=== PATIENT | female | born 1980 | race Caucasian/White ===

== ENCOUNTER 2018-03-01 07:40 | Inpatient (IN) | payer SELFPAY ==
[2018-03-01] MEDS ORDERED: Penicillin G Potassium IV* 5,000,000 UNITS in NS 0.9% 100 ML* 100 ML IVPB ONE (08:22)
[2018-03-01] MEDS ORDERED: Oxytocin in LR* 20 UNITS/1,000 ML BAG IVPB ONE (08:32)
--- NOTE | 2018-03-01 08:33 | HP ---
General Information - Reason for Visit Arrives for IND at term - General Information Maternal Age: 37 Grav: 4 Para: 2 SAB: 0 IEA: 1 Estimated Due Date: 02/26/18 Determined By: Early Ultrasound Maternal Blood Type and Rh: O Positive - Results this Serology/RPR Result: Non-Reactive Rubella Result: Immune HBsAg Result: Negative HIV Result: Negative GBS Culture Result: Positive Past Medical History Delivery History: Hx Complicated Vaginal Delivery Pertinent Past Medical History: Non-Contributory Pertinent Past Surgical History: See Records Pertinent Family History: Non-Contributory - Antepartal Records Antepartal Records: Reviewed, Uncomplicated Review of Systems Constitutional: Comfortable CV Complaint: No Respiratory: Shortness of Breath: No Gastrointestinal: No Nausea/Vomiting, Normal Bowel Movement Genitourinary: No Dysuria, No Bleeding, No Leaking Fluid Musculoskeletal: No Complaint Neurological: No Headache Movement: Normal Exam Allergies/Adverse Reactions: Allergies MS Metronidazole [Metronidazole] Allergy (Severe, Verified 01/24/14 11:00) Anaphylatic Shock MS Clindamycin [Clindamycin] Allergy (Verified 01/24/14 11:00) SEVERE Hives, ANAPHYLAXIS WNL - Measurements Height: 5 ft 4 in Weight: 155 lb Weight in lbs: 155.817046 Body Mass Index (BMI): 26.6 - Exam Breast: Breast Exam Deferred Heart: Normal Rhythm/Heart Sounds HEENT: No Significant Findings - Abdominal Exam Abdomen Exam: Non-Tender - Ultrasound/Biophysical Profile Ultrasound Status: Not Done Targeted Exam Findings Membrane Status: Intact EFM Findings - External Monitor Findings Baseline Heart Rate: 135 External Monitor Findings: Accelerations Present, No Pattern of Variable or Late Decelerations, Variability Moderate, Baseline Stable Contractions: None Assessment/Plan - Assessment P2 here for induction at 40.3wks. - Obstetrical Risk Factors Obstetrical Risk Factors: GBS Positive - Plan Plan: Induction, Antibiotic Prophylaxis
[2018-03-01] MEDS ORDERED: Oxytocin in LR* 20 UNITS/1,000 ML BAG IVPB SCH ×2 (09:00→18:00)
[2018-03-01 09:19] LABS: Hematocrit 32 % (35-47); Hemoglobin 10.7 g/dl (12.0-16.0); Mean Corpuscular HGB Conc 33 g/dl (31-36); Mean Corpuscular Hemoglobin 29 pg (27-31); Mean Corpuscular Volume 86 fL (80-97); Mean Platelet Volume 8.7 um3 (7.4-10.4); Platelet Count 213 10^3/ul (150-450); Red Blood Count 3.73 10^6/ul (4.00-5.40); Red Cell Distribution Width 14 % (10.5-15); White Blood Count 9.6 10^3/ul (3.5-10.8)
[2018-03-01] MEDS: Penicillin G Potassium IV* 2,500,000 UNITS in NS 0.9% 100 ML* 100 ML IVPB SCH ×2 (09:45→14:14)
[2018-03-01] MEDS ORDERED: OBEPIDURAL* 250 ML EPIDURAL ONE (14:21)
[2018-03-01] MEDS ORDERED: fentaNYL* 50 MCG/ML 2 ML VIAL (100 MCG VIAL) ONE (14:36)
[2018-03-01] MEDS ORDERED: Sodium Citrate/Citric Acid* 15 ML UDC PO PRN (14:58)
[2018-03-01] MEDS ORDERED: Famotidine TAB* 20 MG PO PRN (14:58)
[2018-03-01] MEDS ORDERED: Phenylephrine IV* 40 MCG/ML 10 ML SYRINGE IV PUSH PRN ×2 (14:58)
[2018-03-01] MEDS ORDERED: OBEPIDURAL* 250 ML EPIDURAL SCH (15:00)
[2018-03-01] MEDS ORDERED: Glycerin ADULT SUPP PR PRN (17:58)
[2018-03-01] MEDS ORDERED: Witch Hazel PAD* JAR TOPICAL PRN (17:58)
[2018-03-01] MEDS ORDERED: Dibucaine 1% 28.35 GM TUBE PR PRN (17:58)
[2018-03-01] MEDS ORDERED: Misoprostol TAB* 200 MCG PR ONE (17:58)
[2018-03-01] MEDS ORDERED: Acetaminophen TAB* 325 MG PO PRN (17:58)
[2018-03-01] MEDS ORDERED: Ammonia Inhalant* 1 EA AMP ONE (19:46)
[2018-03-01] MEDS ORDERED: Simethicone TAB* 80 MG TAB.CHEW PO SCH (21:00)
[2018-03-01 21:40] LABS: ABS Basophils 0 10^3/ul (0-0.2); ABS Eosinophils 0.1 10^3/ul (0-0.6); ABS Lymphocytes 1.6 10^3/ul (1.0-4.8); ABS Monocytes 0.5 10^3/ul (0-0.8); ABS Neutrophils 7.5 10^3/ul (1.5-7.7); ABS Nucleated RBC 0 10^3/ul; Eosinophil % 0.6 % (0-6); Lymphocyte % 16.3 % (25-47); Nucleated Red Blood Cells % 0.2
[2018-03-01] MEDS: Ibuprofen TAB* 600 MG PO PRN (22:23)
[2018-03-02] MEDS: Ibuprofen TAB* 600 MG PO PRN ×4 (03:47→22:13)
[2018-03-02 06:40] LABS: ABS Basophils 0 10^3/ul (0-0.2); ABS Eosinophils 0.1 10^3/ul (0-0.6); ABS Lymphocytes 1.9 10^3/ul (1.0-4.8); ABS Monocytes 0.8 10^3/ul (0-0.8); ABS Neutrophils 12.8 10^3/ul (1.5-7.7); ABS Nucleated RBC 0 10^3/ul; Eosinophil % 0.3 % (0-6); Hematocrit 25 % (35-47); Hemoglobin 8.4 g/dl (12.0-16.0); Lymphocyte % 12.1 % (25-47); Mean Corpuscular HGB Conc 34 g/dl (31-36); Mean Corpuscular Hemoglobin 29 pg (27-31); Mean Corpuscular Volume 86 fL (80-97); Mean Platelet Volume 8.2 um3 (7.4-10.4); Nucleated Red Blood Cells % 0; Platelet Count 166 10^3/ul (150-450); Red Blood Count 2.88 10^6/ul (4.00-5.40); Red Cell Distribution Width 14 % (10.5-15); White Blood Count 15.5 10^3/ul (3.5-10.8)
--- NOTE | 2018-03-02 07:47 | PROCNOTE ---
[facility] OB: Delivery Note - Delivery A Date of : 03/01/18 Time of : 17:35 [place] Weight at : 7 lb 6 oz Score 1 Minute: 9 Score 5 Minutes: 9 Gestational Age in Weeks and Days at Delivery: 40 Weeks and 3 Days Delivery Method: Spontaneous Vaginal Labor: Induced Did Patient attempt ?: N/A, No Previous Amniotic Fluid: Clear Anesthesia/Analgesia: CEI for Labor Delivered By: Helene Sol - Nursery Level of Nursery: Regular/Bedside - Perineum Perineal Injury: 1st Degree Perineal Repair: By Delivering Practioner - Events Delivery Events of Note: Pitocin During Labor, Full Course of Antibiotics, Post- Bleeding - Meds Given - cytotec & pitocin - Risk for Falls Delivered OB Patient- Risk for Falls: Heavy Bleeding Fall Risk: Patient is at High Risk for Falls - Additional Delivery Notes Additional Delivery Notes: Pt arrived for induction of labor at term and was started on pitocin. She progressed to 4cm and received an epidural, then 5cm and underwent AROM. She went through different position changes and progressed to AL, +2 station with urge to push. The cervix quickly reduced as she pushed. She pushed x30min to deliver the in KAIDEN position with a compound hand. The shoulder and the rest of the body followed quickly. The baby was placed on mom's abdomen. The cord was clamped x2 and cut after 1min. The placenta delivered with gentle cord traction and fundal massage. It appeared healthy and intact. The fundus was firm but pt continued to have a moderate amount of bleeding. A figure-of- eight suture was placed to reapproximate the first degree tear. Then some clot was removed from the lower uterine segment. 800mcg of cytotec given with improvement in bleeding. Mom and baby stable.
[2018-03-02] MEDS: Ferrous Gluconate TAB* 324 MG TAB PO SCH ×2 (08:45→21:02)
[2018-03-02] MEDS: Docusate CAP* 100 MG PO SCH ×4 (08:45→21:02)
[2018-03-03 07:35] VITALS: BP 132/87
== END 2018-03-03 10:10 | disposition home or self-care (01) | DRG 774 ==
LOC: MCHOBOUT 07:40 → MCHOB 08:17
PROVIDERS: ADMIT Obstetrics & Gynecology; ATTEND Obstetrics & Gynecology
PROC: 3E0P7VZ Introduction of Hormone into Female Reproductive, Via Natural or Artificial Opening (ICD-10-PCS; principal; 2018-03-02)
PROC: 10E0XZZ Delivery of Products of Conception, External Approach (ICD-10-PCS; 2018-03-02)
PROC: 10907ZC Drainage of Amniotic Fluid, Therapeutic from Products of Conception, Via Natural or Artificial Opening (ICD-10-PCS; 2018-03-02)
PROC: 4A1HXCZ Monitoring of Products of Conception, Cardiac Rate, External Approach (ICD-10-PCS; 2018-03-02)
PROC: 0HQ9XZZ Repair Perineum Skin, External Approach (ICD-10-PCS; 2018-03-02)
DX: O48.0 Post-term pregnancy (principal); O72.1 Other immediate postpartum hemorrhage; Z37.0 Single live birth; O99.824 Streptococcus B carrier state complicating childbirth; Z88.1 Allergy status to other antibiotic agents; Z3A.40 40 weeks gestation of pregnancy; O69.89X0 Labor and delivery complicated by other cord complications, not applicable or unspecified; O70.0 First degree perineal laceration during delivery; O90.81 Anemia of the puerperium; O32.6XX0 Maternal care for compound presentation, not applicable or unspecified
CPT/HCPCS: 36415; 85025; 86850; 86900; 86901; A9270-GY; J2540; J3010

== ENCOUNTER 2018-05-19 09:19 | Day surgery (SDC) | payer SELFPAY ==
[~2018-05-19 09:19] MED LIST: Buffered Lidocaine 0.9% SYRIN* 5 ML/SYR SYRINGE INTRADERM ONE; Dexamethasone IV* 4 MG/ML 1 ML (4 MG) IV SLOW PU ONE; Famotidine IV* 10 MG/ML 2 ML (20 mg) IV ONE
[2018-05-19] MEDS ORDERED: Famotidine IV* 10 MG/ML 2 ML (20 mg) ONE (09:29)
[2018-05-19] MEDS ORDERED: Dexamethasone IV* 4 MG/ML 1 ML (4 MG) ONE (09:29)
[2018-05-19] MEDS ORDERED: Bupivacaine 0.25% SDV* 30 ML ONE (09:54)
[2018-05-19 10:12] LABS: Hematocrit 35 % (35-47); Hemoglobin 11.3 g/dl (12.0-16.0); Mean Corpuscular HGB Conc 33 g/dl (31-36); Mean Corpuscular Hemoglobin 26 pg (27-31); Mean Corpuscular Volume 80 fL (80-97); Mean Platelet Volume 8.2 um3 (7.4-10.4); Platelet Count 261 10^3/ul (150-450); Red Blood Count 4.34 10^6/ul (4.00-5.40); Red Cell Distribution Width 16 % (10.5-15); White Blood Count 7.1 10^3/ul (3.5-10.8)
[2018-05-19] MEDS ORDERED: Scopolamine 1.5 mg* PATCH ONE (10:30)
[2018-05-19] MEDS ORDERED: fentaNYL* 50 MCG/ML 5 ML VIAL (250 MCG VIAL) ONE (10:35)
[2018-05-19] MEDS ORDERED: Midazolam* 1 MG/ML 5 ML VIAL (5 MG) ONE (10:36)
[2018-05-19] MEDS ORDERED: Rocuronium* 10 MG/ML VIAL ONE (10:36)
[2018-05-19] MEDS ORDERED: Sugammadex * 200 MG/2 ML VIAL IV PUSH ONE (10:37)
[2018-05-19] MEDS ORDERED: Lidocaine 2% PF * 5 ML VIAL ONE (10:50)
[2018-05-19] MEDS ORDERED: Scopolamine 1.5 mg* PATCH TRANSDERM SCH (11:00)
[2018-05-19] MEDS ORDERED: Ondansetron INJ* 2 MG/ML VIAL ONE (11:02)
[2018-05-19] MEDS ORDERED: Propofol* 10 MG/ML 20 ML BTL IV PUSH ONE (11:02)
[2018-05-19] MEDS ORDERED: Ketorolac INJ* 30 MG/ML 1 ML VIAL ONE (11:02)
[2018-05-19] MEDS ORDERED: oxyCODONE/Acetamin 5/325 MG* TAB PO PRN (11:25)
[2018-05-19] MEDS ORDERED: DiMENhydriNATE IV* 50 MG/ML VIAL IV PUSH PRN (11:25)
[2018-05-19] MEDS ORDERED: Naloxone* 0.4 MG/ML 1 ML VIAL IV PRN (11:25)
[2018-05-19] MEDS ORDERED: Ondansetron INJ* 2 MG/ML VIAL IV PRN (11:25)
[2018-05-19] MEDS ORDERED: fentaNYL* 50 MCG/ML 2 ML VIAL (100 MCG VIAL) IV PRN (11:25)
[2018-05-19 13:35] VITALS: BP 118/72
--- NOTE | 2018-05-25 23:54 | OP ---
DATE OF OPERATION: 05/19/18 [facility] DATE OF : 84. SURGEON: Aissatou Beaver MD ANESTHESIA: General endotracheal. PRE-OP DIAGNOSIS: Satisfied parity. POST-OP DIAGNOSIS: Satisfied parity. OPERATIVE PROCEDURE: Laparoscopic bilateral tubal ligation using bipolar. MATERIALS TO LAB: None. ESTIMATED BLOOD LOSS: Minimal. URINE OUTPUT: 500 cc. IV FLUIDS: 1200 cc lactated Ringers. INDICATIONS: This patient was a 37-year-old 4, para 3, who strongly desires permanent sterilization. She was made aware of all the other long-term contraception options and was very sure of her decision. She was extensively counseled and consent was signed. FINDINGS: Normal-appearing uterus, fallopian tubes, and ovaries. COMPLICATIONS: None. DESCRIPTION OF PROCEDURE: The risks, benefits, and alternatives were described to the patient, and informed consent was obtained. The patient was taken to the operating room with IV running where general anesthesia was induced and found to be adequate. The patient was prepped and draped in the normal-sterile fashion in the low lithotomy position in [facility]. A time-out was performed. The bladder was emptied. A bivalve speculum was placed in the vagina and a Hulka tenaculum was placed through the cervix into the uterus. The speculum was then removed. Attention was then turned to the abdomen. 0.25% Marcaine was then injected into the skin of the umbilicus as well as 2-cm above the pubic symphysis. A 5 mm skin incision was made with a scalpel in the umbilicus. A 5mm bladeless trocar was then inserted through the incision and into the peritoneal cavity without difficulty. The skin was elevated using penetrating towel clamps. Once the trocar was in the abdominal cavity, the abdomen was insufflated with carbon dioxide gas to a maximum pressure of 15 mmHg. Using the camera, the area below the trocar placement was carefully inspected and there was no evidence of trauma or bleeding. The patient was placed in the Trendelenburg position. A second 5mm incision was made 2 cm above the pubic symphysis in a transverse fashion. A second 5mm bladeless trocar was also placed through this incision and into the abdominal cavity without difficulty. Using the Hulka tenaculum for manipulation, the uterus was elevated and well visualized. The structures appeared normal. The patient's right fallopian tube was then grasped in the mid isthmic portion with the bipolar Kleppinger. At least four or five sites along the tube were coagulated until the tissue resistance was zero, measured on a meter. The same was then performed on the patient's left side, again without difficulty and with excellent hemostasis. The case was then completed. The gas was allowed to escape, and the trocars were removed from the abdomen. The skin was reapproximated using 4-0 Monocryl in a subcuticular stitch, and the incisions were then overlaid with Dermaflex skin adhesive. The tenaculum was then removed from the cervix as well, and there was only light bleeding from the vagina at that time. The patient was returned to the supine position and allowed to awaken. The patient tolerated the procedure well. Sponge, lap, and needle counts were correct x2. [id number]/CPS #: [id number] MTDD
== END 2018-05-19 13:45 | disposition home or self-care (01) ==
LOC: OR 09:19
PROVIDERS: ATTEND Obstetrics & Gynecology
DX: Z30.2 Encounter for sterilization (principal)
CPT/HCPCS: 36415; 81025; 85027; 86850; 86900; 86901; A9270-GY; J1100; J1885; J2250; J2405; J2704; J3010